=== PATIENT | male | born 1975 | race American Indian/Alaskan Native ===

== ENCOUNTER 2017-02-06 23:08 | Emergency (ER) | payer MEDICAID, OTHER, SELFPAY ==
[2017-02-06] MEDS ORDERED: NALOXONE INJ 2 MG/2 ML SYRINGE (J2310) IV STA (23:42)
[2017-02-07 00:22] LABS: BASO % 0.8 % (0.0-1.0); EOS # 0.1 K/mm3 (0.0-0.50); EOS % 2.2 % (0.0-3.0); LARGE UNSTAINED CELL # 0.1 K/mm3 (0.0-0.4); LYMPH % 20.5 % (24.0-44.0); MEAN CORPUSCULAR HEMOGLOBIN 31.8 pg (27.0-33.0); MEAN CORPUSCULAR HGB CONC 34.8 g/dl (32.0-36.5); MEAN CORPUSCULAR VOLUME 91.3 fl (80.0-96.0); MONO # 0.2 K/mm3 (0.0-0.8); MONO % 3.4 % (0.0-5.0); NEUTROPHILS # 3.5 K/mm3 (1.8-7.7); NEUTROPHILS % 72.1 % (36.0-66.0); PLATELET COUNT, AUTOMATED 299 k/mm3 (150-450); RED CELL DISTRIBUTION WIDTH 12.8 % (11.5-14.5); WHITE BLOOD COUNT 4.9 K/mm3 (4.0-10.0)
[2017-02-07 00:42] LABS: ANION GAP 9 MEQ/L (8-16); BLOOD UREA NITROGEN 8 MG/DL (7-18); CALCIUM LEVEL 8.3 MG/DL (8.5-10.1); CARBON DIOXIDE LEVEL 23 MEQ/L (21-32); CHLORIDE LEVEL 107 MEQ/L (98-107); CREATININE FOR GFR 0.95 MG/DL (0.70-1.30); GLOMERULAR FILTRATION RATE > 60.0 (>60); GLUCOSE, FASTING 110 MG/DL (70-105); POTASSIUM SERUM 3.3 MEQ/L (3.5-5.1); SODIUM LEVEL 139 MEQ/L (136-145)
[2017-02-07 06:47] VITALS: BP 118/74
== END 2017-02-07 07:10 | disposition home or self-care (01) ==
LOC: M ED 23:08
DX: F10.129 Alcohol abuse with intoxication, unspecified (principal)
CPT/HCPCS: 80048; 85025; 96374; 99284; G0480; J2310

== ENCOUNTER 2017-02-14 21:31 | Emergency (ER) | payer MEDICAID, OTHER, SELFPAY ==
[2017-02-14] MEDS ORDERED: AMMONIA AROMATIC INHALANT (FLOOR STOCK) As Ordered ONE (21:38)
[2017-02-14 21:43] VITALS: BP 128/91
== END 2017-02-14 21:59 | disposition home or self-care (01) ==
LOC: EDBD 21:31 → M ED 21:31
DX: F10.129 Alcohol abuse with intoxication, unspecified (principal)

== ENCOUNTER 2017-02-24 21:54 | Emergency (ER) | payer MEDICAID, SELFPAY ==
[~2017-02-24] VITALS: Ht 180.3 cm; Wt 88.0 kg
[2017-02-25 04:36] VITALS: BP 138/90
== END 2017-02-25 04:46 | disposition home or self-care (01) ==
LOC: M ED 21:54 → EDBD 21:54 → M ED 02-25 04:46
DX: F10.129 Alcohol abuse with intoxication, unspecified (principal)

== ENCOUNTER 2017-03-02 22:12 | Emergency (ER) | payer MEDICAID, SELFPAY ==
[2017-03-02] MEDS ORDERED: NS 1,000 ML IV ONE (23:00)
[2017-03-02 23:08] LABS: BASO % 0.5 % (0.0-1.0); EOS # 0.1 K/mm3 (0.0-0.50); EOS % 1.7 % (0.0-3.0); LARGE UNSTAINED CELL # 0.1 K/mm3 (0.0-0.4); LARGE UNSTAINED CELL % 1.8 % (0.0-4.0); LYMPH # 1.6 K/mm3 (1.5-4.5); LYMPH % 27.6 % (24.0-44.0); MEAN CORPUSCULAR HEMOGLOBIN 31.8 pg (27.0-33.0); MEAN CORPUSCULAR HGB CONC 34.6 g/dl (32.0-36.5); MONO # 0.3 K/mm3 (0.0-0.8); MONO % 5.3 % (0.0-5.0); NEUTROPHILS # 3.5 K/mm3 (1.8-7.7); PLATELET COUNT, AUTOMATED 261 k/mm3 (150-450); RED CELL DISTRIBUTION WIDTH 13.5 % (11.5-14.5); WHITE BLOOD COUNT 5.5 K/mm3 (4.0-10.0)
[2017-03-02 23:23] LABS: ALBUMIN 3.7 GM/DL (3.2-5.2); ALBUMIN/GLOBULIN RATIO 0.97 (1.00-1.93); ALKALINE PHOSPHATASE 67 U/L (45-117); ALT/SGPT 44 U/L (12-78); ANION GAP 9 MEQ/L (8-16); AST/SGOT 31 U/L (15-37); BILIRUBIN,DIRECT 0.1 MG/DL (0.0-0.2); BILIRUBIN,TOTAL 0.2 MG/DL (0.2-1.0); BLOOD UREA NITROGEN 8 MG/DL (7-18); CALCIUM LEVEL 8.1 MG/DL (8.5-10.1); CARBON DIOXIDE LEVEL 25 MEQ/L (21-32); CHLORIDE LEVEL 108 MEQ/L (98-107); CREATININE FOR GFR 0.94 MG/DL (0.70-1.30); GLOMERULAR FILTRATION RATE > 60.0 (>60); GLUCOSE, FASTING 111 MG/DL (70-105); POTASSIUM SERUM 3.3 MEQ/L (3.5-5.1); SODIUM LEVEL 142 MEQ/L (136-145); TOTAL PROTEIN 7.5 GM/DL (6.4-8.2)
[2017-03-03 00:22] LABS: METHADONE URINE NEGATIVE (NEGATIVE)
[2017-03-03 09:01] VITALS: BP 135/81
--- NOTE | 2017-03-03 10:48 | ECGEPIP ---
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
== END 2017-03-03 09:38 | disposition home or self-care (01) ==
LOC: EDBD 22:12 → M ED 22:12
DX: F10.129 Alcohol abuse with intoxication, unspecified (principal)
CPT/HCPCS: 80048; 80076; 80307; 82550; 82553; 84443; 85025; 93005; 93041; 94760; 99285; G0480

== ENCOUNTER → 2017-05-11 | Outpatient (CLI) | payer MEDICAID | LOC: M OUTALCOH 12:16 | PROVIDERS: ATTEND Psychiatry & Neurology Psychiatry | DX: F10.20 Alcohol dependence, uncomplicated (principal) ==

== ENCOUNTER 2018-03-04 23:14 | Inpatient (IN) | payer SELFPAY, OTHER ==
[2018-03-04] MEDS ORDERED: PROPOFOL 1,000 MG/100 ML VIAL As Ordered (23:18)
[2018-03-04] MEDS: ETOMIDATE INJ 20MG/10ML VIAL IV (23:20)
[2018-03-04] MEDS: SUCCINYLCHOLINE INJ 200 MG/10 ML VIAL (J0330) IV (23:20)
[2018-03-04] MEDS: PROPOFOL 1,000 MG in APPROPRIATE DILUENT 1 EA IV (23:30)
[2018-03-04] MEDS: NS 1,000 ML IV (23:30)
[2018-03-05 00:31] LABS: AMPHETAMINES LEVEL URINE NEGATIVE (NEGATIVE); BARBITURATES URINE NEGATIVE (NEGATIVE); BENZODIAZEPINES URINE NEGATIVE (NEGATIVE); CANNABINOIDS URINE NEGATIVE (NEGATIVE); COCAINE METABOLITE URINE NEGATIVE (NEGATIVE); METHADONE URINE NEGATIVE (NEGATIVE); OPIATES URINE NEGATIVE (NEGATIVE); PHENCYCLIDINE URINE NEGATIVE (NEGATIVE)
[2018-03-05 00:33] LABS: AMMONIA 26 uMOL/L (<32)
[2018-03-05 00:34] LABS: BASO % 0.4 % (0.0-1.0); EOS % 0.2 % (0.0-3.0); HEMOGLOBIN 13.4 g/dl (13.5-17.5); IMMATURE GRANULOCYTE % 0.2 % (0-3.0); LYMPH # 0.9 10^3/uL (1.5-4.5); LYMPH % 18.9 % (24.0-44.0); MEAN CORPUSCULAR HEMOGLOBIN 31.9 pg (27.0-33.0); MEAN CORPUSCULAR HGB CONC 36.2 g/dl (32.0-36.5); MEAN CORPUSCULAR VOLUME 88.1 fl (80.0-96.0); MONO # 0.2 10^3/uL (0.0-0.8); MONO % 3.6 % (0.0-5.0); NEUTROPHILS # 3.7 10^3/uL (1.8-7.7); NEUTROPHILS % 76.7 % (36.0-66.0); PLATELET COUNT, AUTOMATED 270 10^3/uL (150-450); RED CELL DISTRIBUTION WIDTH 12.3 % (11.5-14.5); WHITE BLOOD COUNT 4.8 10^3/uL (4.0-10.0)
[2018-03-05 00:37] LABS: ALBUMIN 3.9 GM/DL (3.2-5.2); ALKALINE PHOSPHATASE 62 U/L (45-117); ALT/SGPT 20 U/L (12-78); ANION GAP 12 MEQ/L (8-16); AST/SGOT 16 U/L (7-37); BILIRUBIN,DIRECT 0.1 MG/DL (0.0-0.2); BILIRUBIN,TOTAL 0.4 MG/DL (0.2-1.0); BLOOD UREA NITROGEN 3 MG/DL (7-18); CARBON DIOXIDE LEVEL 21 MEQ/L (21-32); CHLORIDE LEVEL 102 MEQ/L (98-107); CPK CREATINE PHOSPHOKINASE 157 U/L (39-308); CREATININE FOR GFR 0.89 MG/DL (0.70-1.30); GLOMERULAR FILTRATION RATE > 60.0 (>60); GLUCOSE, FASTING 136 MG/DL (70-100); POTASSIUM SERUM 3.4 MEQ/L (3.5-5.1); SALICYLATE LEVEL < 1.7 MG/DL (5.0-30.0); SODIUM LEVEL 135 MEQ/L (136-145); TOTAL PROTEIN 6.9 GM/DL (6.4-8.2); TROPONIN I < 0.02 NG/ML (< 0.10)
[2018-03-05 00:42] LABS: BEDSIDE GLUCOSE 120 MG/DL (70-105)
[2018-03-05 00:53] LABS: CK-MB VALUE MASS 1.7 NG/ML (<3.6); MB/CK RELATIVE INDEX 1.08 (< OR =4); THYROID STIMULATING HORMONE 0.668 uIU/ML (0.358-3.740)
[2018-03-05 00:55] LABS: ETHYL ALCOHOL (ETHANOL) 0.355 % (0.000-0.010)
[2018-03-05 00:56] LABS: ACETAMINOPHEN LEVEL < 2.0 UG/ML (10.0-30.0)
[2018-03-05 01:11] LABS: ABG BASE EXCESS -6.2 (-2.0-2.0); ABG HCO3 18.1 MEQ/L (22.0-26.0); ABG O2 SATURATION 98.9 % (95.0-99.0); ABG PARTIAL PRESSURE CO2 31.9 mmHg (35.0-45.0); ABG PARTIAL PRESSURE O2 159.2 mmHg (75.0-100.0); ABG STANDARD HCO3 19.5 MEQ/L (22.0-26.0); ABG pH (ARTERIAL) 7.371 UNITS (7.350-7.450)
[2018-03-05] MEDS ORDERED: PROPOFOL 1,000 MG/100 ML VIAL As Ordered ×2 (01:22→06:11)
[2018-03-05 01:29] LABS: INR 1.13; PROTHROMBIN TIME 14.6 SECONDS (12.1-14.4)
[2018-03-05] MEDS: PROPOFOL 1,000 MG in APPROPRIATE DILUENT 1 EA IV ×4 (01:29→12:59)
[2018-03-05 01:30] LABS: PARTIAL THROMBOPLASTIN TIME 27.3 SECONDS (25.4-37.6)
[2018-03-05] MEDS: NS 1,000 ML IV (01:57)
[2018-03-05] MEDS ORDERED: DEXTROSE 50% 50 ML SYRINGE IV (02:45)
[2018-03-05] MEDS ORDERED: GLUCAGON FOR INJ 1 MG VIAL (J1610) SC (02:45)
[2018-03-05] MEDS ORDERED: GLUCOSE 4 GM CHEW TABLET PO (02:45)
[2018-03-05] MEDS: MULTIVITAMIN -ADULT INJECTION 10 ML, THIAMINE INJection 100 MG, FOLIC ACID 1 MG in NS 1... IV (03:55)
[2018-03-05] MEDS: MIDAZOLAM INJ 2 MG/2 ML VIAL (J2250) IV ×4 (04:28→06:17)
[2018-03-05] MEDS: D5W/0.9% SODIUM CHLORIDE 1,000 ML IV (04:33)
[2018-03-05 05:40] LABS: BASO % 0.2 % (0.0-1.0); EOS % 0.2 % (0.0-3.0); HEMATOCRIT 33.5 % (42.0-52.0); HEMOGLOBIN 12.2 g/dl (13.5-17.5); IMMATURE GRANULOCYTE % 0.3 % (0-3.0); LYMPH # 1.6 10^3/uL (1.5-4.5); LYMPH % 17.9 % (24.0-44.0); MEAN CORPUSCULAR HEMOGLOBIN 32.2 pg (27.0-33.0); MEAN CORPUSCULAR HGB CONC 36.4 g/dl (32.0-36.5); MEAN CORPUSCULAR VOLUME 88.4 fl (80.0-96.0); MONO # 0.3 10^3/uL (0.0-0.8); MONO % 3.4 % (0.0-5.0); NEUTROPHILS # 7.2 10^3/uL (1.8-7.7); PLATELET COUNT, AUTOMATED 260 10^3/uL (150-450); RED BLOOD COUNT 3.79 10^6/uL (4.30-6.10); RED CELL DISTRIBUTION WIDTH 12.5 % (11.5-14.5); WHITE BLOOD COUNT 9.2 10^3/uL (4.0-10.0)
[2018-03-05 05:41] LABS: ALBUMIN 3.3 GM/DL (3.2-5.2); ALBUMIN/GLOBULIN RATIO 1.06 (1.00-1.93); ALKALINE PHOSPHATASE 56 U/L (45-117); ALT/SGPT 19 U/L (12-78); ANION GAP 13 MEQ/L (8-16); AST/SGOT 12 U/L (7-37); BILIRUBIN,TOTAL 0.5 MG/DL (0.2-1.0); BLOOD UREA NITROGEN 4 MG/DL (7-18); CALCIUM LEVEL 7.5 MG/DL (8.5-10.1); CARBON DIOXIDE LEVEL 21 MEQ/L (21-32); CHLORIDE LEVEL 105 MEQ/L (98-107); CHOLESTEROL LEVEL 92 MG/DL (< 200); CPK CREATINE PHOSPHOKINASE 172 U/L (39-308); CREATININE FOR GFR 0.82 MG/DL (0.70-1.30); GLOMERULAR FILTRATION RATE > 60.0 (>60); GLUCOSE, FASTING 122 MG/DL (70-100); LDH LACTATE DEHYDROGENASE 158 U/L (87-241); PHOSPHORUS LEVEL 4.2 MG/DL (2.5-4.9); POTASSIUM SERUM 3.3 MEQ/L (3.5-5.1); SODIUM LEVEL 139 MEQ/L (136-145); TOTAL PROTEIN 6.4 GM/DL (6.4-8.2); TRIGLYCERIDES LEVEL 155 MG/DL (<150)
[2018-03-05] MEDS: HEPARIN SOD (PORCINE) 5000 UNITS/ML VIAL SC ×2 (06:01→14:45)
[2018-03-05] MEDS: HumaLOG INSULIN (NovoLOG) PER UNIT SC ×2 (06:02→11:47)
[2018-03-05] MEDS: IPRATROPIUM 0.5MG/ALBUTEROL 2.5MG INH SOL UD 3ML (DUONEB)(J7620) NEB ×3 (08:03→15:18)
[2018-03-05] MEDS ORDERED: PANTOPRAZOLE 40MG INJ (PROTONIX) (C9113) IV (09:00)
[2018-03-05] MEDS: KCL 10MEQ/100ML SWI (KRUN) 10 MEQ in APPROPRIATE DILUENT 1 EA IV ×2 (09:21→10:51)
[2018-03-05] MEDS: PANTOPRAZOLE 40MG INJ (PROTONIX) (C9113) IV (09:22)
[2018-03-05] MEDS: CHLORHEXIDINE ORAL RINSE 0.12%/15ML 120ML BOTTLE MT (09:22)
[2018-03-05 11:44] LABS: BEDSIDE GLUCOSE 106 MG/DL (70-105)
[2018-03-05 17:41] LABS: BEDSIDE GLUCOSE 107 MG/DL (70-105)
== END 2018-03-05 19:25 | disposition left against medical advice (07) | DRG 133 ==
LOC: M ED INP 03-05 02:28 → M ED 23:14 → M ICU 03-05 03:26
PROC: 5A1935Z Respiratory Ventilation, Less than 24 Consecutive Hours (ICD-10-PCS; principal; 2018-03-05)
DX: J96.01 Acute respiratory failure with hypoxia (principal); T68.XXXA Hypothermia, initial encounter; F10.129 Alcohol abuse with intoxication, unspecified

== ENCOUNTER 2018-03-11 00:43 | Emergency (ER) | payer SELFPAY ==
[2018-03-11] MEDS: HALOPERIDOL 5 MG/ML VIAL (J1630) IV (01:30)
[2018-03-11] MEDS: TETANUS IMMUNE GLOBULIN (HUMAN) 250 UNITS/ML SYRINGE (J1670)(90389) IM (01:35)
[2018-03-11] MEDS: ADACEL/BOOSTRIX VACCINE (DIPHTH/PERTUSS/ACELL/TETANUS)0.5ML SYR (90715) IM (01:44)
[2018-03-11 02:04] LABS: ETHYL ALCOHOL (ETHANOL) 0.351 % (0.000-0.010)
== END 2018-03-11 06:10 | disposition home or self-care (01) ==
LOC: M ED 00:43
DX: F10.120 Alcohol abuse with intoxication, uncomplicated (principal); S00.81XA Abrasion of other part of head, initial encounter; X58.XXXA Exposure to other specified factors, initial encounter; Y92.481 Parking lot as the place of occurrence of the external cause
CPT/HCPCS: 90715

== ENCOUNTER 2018-03-11 11:22 | Emergency (ER) | payer SELFPAY ==
[2018-03-11] MEDS: METOCLOPRAMIDE INJ 10MG/2ML VIAL (J2765) IV (13:30)
[2018-03-11] MEDS: NS 1,000 ML IV (13:30)
[2018-03-11 13:54] LABS: HEMATOCRIT 38.3 % (42.0-52.0); HEMOGLOBIN 13.5 g/dl (13.5-17.5); MEAN CORPUSCULAR HEMOGLOBIN 31.8 pg (27.0-33.0); MEAN CORPUSCULAR HGB CONC 35.2 g/dl (32.0-36.5); MEAN CORPUSCULAR VOLUME 90.3 fl (80.0-96.0); PLATELET COUNT, AUTOMATED 304 10^3/uL (150-450); RED BLOOD COUNT 4.24 10^6/uL (4.30-6.10); RED CELL DISTRIBUTION WIDTH 13.4 % (11.5-14.5); WHITE BLOOD COUNT 9.5 10^3/uL (4.0-10.0)
[2018-03-11 14:24] LABS: ALBUMIN 3.9 GM/DL (3.2-5.2); ALBUMIN/GLOBULIN RATIO 1.05 (1.00-1.93); ALKALINE PHOSPHATASE 60 U/L (45-117); ALT/SGPT 26 U/L (12-78); ANION GAP 11 MEQ/L (8-16); AST/SGOT 21 U/L (7-37); BILIRUBIN,DIRECT < 0.1 MG/DL (0.0-0.2); BILIRUBIN,TOTAL 0.2 MG/DL (0.2-1.0); BLOOD UREA NITROGEN 8 MG/DL (7-18); CALCIUM LEVEL 8.3 MG/DL (8.5-10.1); CARBON DIOXIDE LEVEL 22 MEQ/L (21-32); CHLORIDE LEVEL 114 MEQ/L (98-107); CREATININE FOR GFR 0.86 MG/DL (0.70-1.30); GLOMERULAR FILTRATION RATE > 60.0 (>60); GLUCOSE, FASTING 128 MG/DL (70-100); LIPASE 334 U/L (73-393); POTASSIUM SERUM 3.9 MEQ/L (3.5-5.1); SODIUM LEVEL 147 MEQ/L (136-145); TOTAL PROTEIN 7.6 GM/DL (6.4-8.2)
[2018-03-11 14:31] LABS: ETHYL ALCOHOL (ETHANOL) < 0.003 % (0.000-0.010)
== END 2018-03-11 15:48 | disposition home or self-care (01) ==
LOC: M ED 11:22
DX: F19.10 Other psychoactive substance abuse, uncomplicated (principal); R29.6 Repeated falls; N40.0 Benign prostatic hyperplasia without lower urinary tract symptoms; F17.200 Nicotine dependence, unspecified, uncomplicated
CPT/HCPCS: J2765

== ENCOUNTER 2018-03-21 18:50 | Emergency (ER) | payer SELFPAY ==
[2018-03-21 14:27] LABS: ETHYL ALCOHOL (ETHANOL) 0.263 % (0.000-0.010)
== END 2018-03-21 18:58 | disposition home or self-care (01) ==
LOC: M ED 18:50
DX: G31.2 Degeneration of nervous system due to alcohol (principal); F10.188 Alcohol abuse with other alcohol-induced disorder
CPT/HCPCS: G0480

== ENCOUNTER 2018-06-11 15:22 | Emergency (ER) | payer SELFPAY | END 2018-06-11 18:52 | disposition home or self-care (01) | LOC: M ED 15:22 | DX: F10.10 Alcohol abuse, uncomplicated (principal) | CPT/HCPCS: 99284 ==

== ENCOUNTER 2022-06-10 19:08 | Emergency (ER) | payer SELFPAY ==
[~2022-06-10] VITALS: Ht 177.8 cm; Wt 100.0 kg
[2022-06-10 19:54] LABS: HEMATOCRIT 42.7 % (42.0-52.0); HEMOGLOBIN 14.9 g/dl (13.5-17.5); MEAN CORPUSCULAR HEMOGLOBIN 32.5 pg (27.0-33.0); MEAN CORPUSCULAR HGB CONC 34.9 g/dl (32.0-36.5); MEAN CORPUSCULAR VOLUME 93.2 fl (80.0-96.0); PLATELET COUNT, AUTOMATED 262 10^3/uL (150-450); RED BLOOD COUNT 4.58 10^6/uL (4.30-6.10); WHITE BLOOD COUNT 7.5 10^3/uL (4.0-10.0)
[2022-06-10] MEDS ORDERED: LORazepam 2 MG TAB PO PRN (20:15)
[2022-06-10 20:32] LABS: ACETAMINOPHEN LEVEL < 2.0 UG/ML (10.0-20.0); ALBUMIN 4.3 G/DL (3.2-5.2); ALT/SGPT 19 U/L (7.0-40); BILIRUBIN,DIRECT 0.1 MG/DL (<0.4); BILIRUBIN,TOTAL 0.3 MG/DL (0.3-1.2); BLOOD UREA NITROGEN 15 MG/DL (9-23); CALCIUM LEVEL 9.1 MG/DL (8.5-10.1); CARBON DIOXIDE LEVEL 21 MMOL/L (20-31); CHLORIDE LEVEL 106 MMOL/L (98-107); CREATININE FOR GFR 0.89 MG/DL (0.70-1.30); ETHYL ALCOHOL (ETHANOL) 0.215 % (0.000-0.010); GLOMERULAR FILTRATION RATE > 60.0 (>60); GLUCOSE, FASTING 106 MG/DL (60-100); POTASSIUM SERUM 3.5 MMOL/L (3.5-5.1); SODIUM LEVEL 140 MMOL/L (136-145); THYROID STIMULATING HORMONE 1.052 uIU/ML (0.55-4.78)
[2022-06-10 20:41] LABS: SALICYLATE LEVEL < 1.7 MG/DL (<30)
[2022-06-10 20:59] LABS: RSV AMPLIFICATION NEGATIVE (NEGATIVE)
[2022-06-10] MEDS: THIAMINE 100 MG TAB PO SCH (21:55)
[2022-06-11 00:59] LABS: AMPHETAMINES LEVEL URINE NEGATIVE (NEGATIVE); BARBITURATES URINE NEGATIVE (NEGATIVE); BENZODIAZEPINES URINE NEGATIVE (NEGATIVE); CANNABINOIDS URINE NEGATIVE (NEGATIVE); COCAINE METABOLITE URINE NEGATIVE (NEGATIVE); METHADONE URINE NEGATIVE (NEGATIVE); OPIATES URINE NEGATIVE (NEGATIVE); PHENCYCLIDINE URINE NEGATIVE (NEGATIVE)
[2022-06-11] MEDS: THIAMINE 100 MG TAB PO SCH ×2 (09:22→21:51)
[2022-06-11] MEDS: FOLIC ACID 1MG TAB PO SCH (09:22)
[2022-06-11] MEDS: MULTIVITAMINS/MINERALS THERAP 1 TAB PO SCH (09:23)
[2022-06-11] MEDS ORDERED: ACETAMINOPHEN TAB 650MG DOSE (2X325MG) PO ONE (21:40)
[2022-06-11] MEDS ORDERED: HOME MED LIST COMPLETE! XX SCH (22:35)
[2022-06-11] MEDS ORDERED: IBUP-1720 PO (22:35)
[2022-06-12] MEDS: MULTIVITAMINS/MINERALS THERAP 1 TAB PO SCH (08:52)
[2022-06-12] MEDS: FOLIC ACID 1MG TAB PO SCH (08:52)
[2022-06-12] MEDS: THIAMINE 100 MG TAB PO SCH ×2 (08:52→20:37)
[2022-06-13] MEDS: THIAMINE 100 MG TAB PO SCH (09:00)
[2022-06-13] MEDS: MULTIVITAMINS/MINERALS THERAP 1 TAB PO SCH (09:00)
[2022-06-13] MEDS: FOLIC ACID 1MG TAB PO SCH (09:00)
[2022-06-14] MEDS: MULTIVITAMINS/MINERALS THERAP 1 TAB PO SCH (09:40)
[2022-06-14] MEDS: FOLIC ACID 1MG TAB PO SCH (09:40)
[2022-06-15] MEDS: FOLIC ACID 1MG TAB PO SCH (10:06)
[2022-06-15] MEDS: MULTIVITAMINS/MINERALS THERAP 1 TAB PO SCH (10:06)
[2022-06-16] MEDS: MULTIVITAMINS/MINERALS THERAP 1 TAB PO SCH (08:53)
[2022-06-16] MEDS: FOLIC ACID 1MG TAB PO SCH (08:53)
[2022-06-16 11:30] LABS: RSV AMPLIFICATION NEGATIVE (NEGATIVE)
[2022-06-16 12:26] VITALS: BP 136/83
== END 2022-06-16 12:39 | disposition home or self-care (01) ==
LOC: M ED 19:08
DX: F10.129 Alcohol abuse with intoxication, unspecified (principal)

== ENCOUNTER 2023-11-03 13:26 | Emergency (ER) | payer SELFPAY ==
[~2023-11-03] VITALS: Ht 180.3 cm; Wt 97.6 kg
[~2023-11-03 13:26] MED LIST: IBUP-1720 PO
[2023-11-03 14:24] LABS: BASO % 0.3 % (0.0-1.0); HEMATOCRIT 40.5 % (42.0-52.0); HEMOGLOBIN 14.7 g/dl (13.5-17.5); LYMPH # 1.5 10^3/uL (1.5-5.0); LYMPH % 26.1 % (24.0-44.0); MEAN CORPUSCULAR HEMOGLOBIN 32.6 pg (27.0-33.0); MEAN CORPUSCULAR HGB CONC 36.3 g/dl (32.0-36.5); MEAN CORPUSCULAR VOLUME 89.8 fl (80.0-96.0); MONO # 0.2 10^3/uL (0.0-0.8); MONO % 3.7 % (2.0-8.0); NEUTROPHILS # 4.1 10^3/uL (1.5-8.5); NEUTROPHILS % 69.7 % (36.0-66.0); PLATELET COUNT, AUTOMATED 251 10^3/uL (150-450); RED BLOOD COUNT 4.51 10^6/uL (4.30-6.10); WHITE BLOOD COUNT 5.9 10^3/uL (4.0-10.0)
[2023-11-03] MEDS: PANTOPRAZOLE 40MG VIAL IV ONE (14:36)
[2023-11-03] MEDS: NS 1,000 ML IV ONE (14:36)
[2023-11-03 14:41] LABS: INR 1.04; PROTHROMBIN TIME 13.3 SECONDS (12.5-14.5)
[2023-11-03 14:42] LABS: LIPASE 42 U/L (12-53)
[2023-11-03 14:43] LABS: CPK CREATINE PHOSPHOKINASE 205 U/L (46-171)
[2023-11-03 14:44] LABS: ALKALINE PHOSPHATASE 81 U/L (46-116); ALT/SGPT 27 U/L (7.0-40); AST/SGOT 28 U/L (<34); BILIRUBIN,DIRECT 0.2 MG/DL (<0.4); BILIRUBIN,TOTAL 0.5 MG/DL (0.3-1.2); BLOOD UREA NITROGEN 12 MG/DL (9-23); CALCIUM LEVEL 8.7 MG/DL (8.5-10.1); CARBON DIOXIDE LEVEL 25 MMOL/L (20-31); CHLORIDE LEVEL 104 MMOL/L (98-107); CK-MB VALUE MASS 2.7 NG/ML (<3.6); CREATININE FOR GFR 0.92 MG/DL (0.70-1.30); GLOMERULAR FILTRATION RATE > 60.0 (>60); GLUCOSE, FASTING 134 MG/DL (60-100); MAGNESIUM LEVEL 2.1 MG/DL (1.8-2.4); MB/CK RELATIVE INDEX 1.31 (< OR =4); POTASSIUM SERUM 3.4 MMOL/L (3.5-5.1); SODIUM LEVEL 140 MMOL/L (136-145)
[2023-11-03 14:46] LABS: FREE T4 1.14 NG/DL (0.89-1.76)
[2023-11-03] MEDS ORDERED: ISOVUE-370 76% 100ML VIAL As Ordered ONE (15:17)
[2023-11-03 15:25] LABS: ETHYL ALCOHOL (ETHANOL) 0.379 % (0.000-0.010); THYROID STIMULATING HORMONE 0.816 uIU/ML (0.55-4.78)
[2023-11-03] MEDS: MAALOX 30 ML SUSP *UDC PO ONE (15:58)
[2023-11-03] MEDS: SUCRALFATE SUSP 1GM/10ML UD PO ONE (15:58)
[2023-11-03] MEDS: THIAMINE 100 MG TAB PO SCH (16:55)
[2023-11-03] MEDS: ONDANSETRON 4MG 2ML VIAL IV ONE (19:05)
[2023-11-04] MEDS ORDERED: HOME MED LIST COMPLETE! XX SCH (08:35)
[2023-11-04] MEDS: ONDANSETRON 4MG ORAL DISINTEGRATING TAB PO ONE (08:40)
[2023-11-04] MEDS: LORazepam 2 MG TAB PO PRN (11:39)
[2023-11-04] MEDS: MULTIVITAMINS/MINERALS THERAP 1 TAB PO SCH (11:39)
[2023-11-04] MEDS: FOLIC ACID 1MG TAB PO SCH (11:39)
[2023-11-04 19:03] VITALS: BP 146/78; TEMP 98.2; O2SAT 97
== END 2023-11-04 19:07 | disposition short-term general hospital (02) ==
LOC: M ED 13:26
DX: F10.10 Alcohol abuse, uncomplicated (principal); I51.7 Cardiomegaly; K57.30 Diverticulosis of large intestine without perforation or abscess without bleeding
CPT/HCPCS: 71045; 71260; 74177; 80048; 80076; 82077; 82550; 82553; 83690; 83735; 83880; 84439; 84443; 84484; 85025; 85610; 93005; 93041; 94760; 96374; 96375; 99285; C9113; J2405; Q9967